=== PATIENT | male | born 1935 | race Two or more races ===

== ENCOUNTER 2018-12-15 14:23 | Inpatient (IN) | payer MEDICARE, BC ==
[2018-12-15] MEDS: SODIUM CHLORIDE 0.9% 1L BAG IV* (14:59)
[2018-12-15 15:07] LABS: ADD MAN DIFF? NO
[2018-12-15 15:10] LABS: BASOPHILS % 0.3 % (0.0-2.0); EOSINOPHILS # 0.1 10^3/ul (0.0-0.5); EOSINOPHILS % 1.1 % (0.0-7.0); HEMATOCRIT 45.7 % (42.0-52.0); HEMOGLOBIN 13.8 g/dl (14.0-18.0); LYMPHOCYTES % 21.3 % (15.0-51.0); MEAN CORPUSCULAR HEMOGLOBIN 26.1 pg (29.0-33.0); MEAN CORPUSCULAR HGB CONC 30.2 g/dl (32.0-37.0); MEAN CORPUSCULAR VOLUME 86.4 fl (82.0-101.0); MEAN PLATELET VOLUME 10.9 fl (7.4-10.4); MONOCYTE # 0.7 10^3/ul (0.3-0.9); MONOCYTES % 7.7 % (0.0-11.0); NEUTROPHIL # 6.4 10^3/ul (1.6-7.5); NEUTROPHILS % 69.1 % (39.0-77.0); PLATELET COUNT 209 10^3/UL (140-415); RED BLOOD COUNT 5.29 10^6/ul (4.70-6.10); RED CELL DISTRIBUTION WIDTH 13.6 % (11.5-14.5)
[2018-12-15 15:10] LABS: WHITE BLOOD COUNT 9.3 10^3/ul (4.8-10.8)
[2018-12-15 15:19] LABS: INR 1.12; PARTIAL THROMBOPLASTIN TIME 29.1 Sec (23.0-35.0); PROTIME 14.5 Sec (11.9-14.9); PT RATIO 1.1
[2018-12-15 15:22] LABS: ALANINE AMINOTRANSFERASE 23 IU/L (13-69); ALBUMIN 3.1 g/dl (3.3-4.9); ALBUMIN/GLOBULIN RATIO 0.96; ALKALINE PHOSPHATASE 80 IU/L (42-121); ANION GAP 7 (5-13); ASPARTATE AMINO TRANSFERASE 23 IU/L (15-46); BILIRUBIN,INDIRECT 0.7 mg/dl (0-1.1); BILIRUBIN,TOTAL 0.7 mg/dl (0.2-1.3); BLOOD UREA NITROGEN 24 mg/dl (7-20); CALCIUM 8.5 mg/dl (8.4-10.2); CARBON DIOXIDE 28 mmol/L (21-31); CHLORIDE 106 mmol/L (97-110); CREATININE 0.63 mg/dl (0.61-1.24); GLUCOSE 101 mg/dl (70-220); LIPASE 112 U/L (23-300); POTASSIUM 3.8 mmol/L (3.5-5.1); SODIUM 141 mmol/L (135-144); TOTAL PROTEIN 6.3 g/dl (6.1-8.1)
[2018-12-15 15:34] LABS: TROPONIN-I 0.014 ng/ml (0.000-0.120)
[2018-12-15 16:16] LABS: ADD UMIC YES; UR ASCORBIC ACID NEGATIVE (NEGATIVE); UR BILIRUBIN (Dip) NEGATIVE (NEGATIVE); UR BLOOD (Dip) 2+ mg/dL (NEGATIVE); UR CLARITY TURBID (CLEAR); UR COLOR AMBER (YELLOW); UR GLUCOSE (Dip) NEGATIVE (NEGATIVE); UR KETONES (Dip) NEGATIVE (NEGATIVE); UR LEUKOCYTE ESTERASE (Dip) 2+ Leu/ul (NEGATIVE); UR NITRITE (Dip) POSITIVE (NEGATIVE); UR RBC 26 /HPF (0-5); UR SPECIFIC GRAVITY (Dip) 1.018 (1.003-1.030); UR TOTAL PROTEIN (Dip) 2+ mg/dl (NEGATIVE); UR UROBILINOGEN (Dip) NEGATIVE (NEGATIVE); UR WBC > 182 /HPF (0-5)
[2018-12-15] MEDS: CEFTRIAXONE 1 GM/50 ML (PMX) 50 ML IVPB (16:46)
[2018-12-15 17:14] LABS: LACTIC ACID 1.4 mmol/L (0.5-2.0)
[2018-12-15] MEDS ORDERED: ONDANSETRON 4 MG INJ IV ×2 (18:30→19:30)
[2018-12-15] MEDS ORDERED: ACETAMINOPHEN 325 MG TAB PO ×2 (18:30→19:30)
[2018-12-15] MEDS ORDERED: DOCUSATE SODIUM 100 MG CAP PO (19:30)
[2018-12-15] MEDS ORDERED: ZOLPIDEM 5 MG TAB PO (19:30)
[2018-12-15] MEDS ORDERED: morphine 2 MG INJ IV (19:30)
[2018-12-15] MEDS ORDERED: HYDROCODONE/APAP (5/325) TAB PO (19:30)
[2018-12-15] MEDS ORDERED: NACL 0.9% 3 ML SYG IV (19:30)
[2018-12-15] MEDS: D5W-0.45 NACL + KCL 20 MEQ 1,000 ML IV (20:29)
[2018-12-15] MEDS ORDERED: PENDING SANTYL ORDER FOR WOUND CARE XX (22:30)
[2018-12-15 22:41] LABS: LACTIC ACID 1.4 mmol/L (0.5-2.0)
[2018-12-16 05:54] LABS: ADD MAN DIFF? NO
[2018-12-16 06:22] LABS: ANION GAP 1 (5-13); BLOOD UREA NITROGEN 16 mg/dl (7-20); CALCIUM 8.3 mg/dl (8.4-10.2); CARBON DIOXIDE 31 mmol/L (21-31); CHLORIDE 108 mmol/L (97-110); CREATININE 0.52 mg/dl (0.61-1.24); GLUCOSE 105 mg/dl (70-220); MAGNESIUM 2.1 mg/dl (1.7-2.5); PHOSPHORUS 3.1 mg/dl (2.5-4.9); SODIUM 140 mmol/L (135-144)
[2018-12-16 06:40] LABS: WHITE BLOOD COUNT 7.6 10^3/ul (4.8-10.8)
[2018-12-16 06:40] LABS: BASOPHILS % 0.5 % (0.0-2.0); EOSINOPHILS # 0.2 10^3/ul (0.0-0.5); HEMATOCRIT 41.4 % (42.0-52.0); HEMOGLOBIN 12.6 g/dl (14.0-18.0); LYMPHOCYTES # 1.5 10^3/ul (0.8-2.9); LYMPHOCYTES % 19.4 % (15.0-51.0); MEAN CORPUSCULAR HEMOGLOBIN 26.4 pg (29.0-33.0); MEAN CORPUSCULAR HGB CONC 30.4 g/dl (32.0-37.0); MEAN CORPUSCULAR VOLUME 86.6 fl (82.0-101.0); MEAN PLATELET VOLUME 10.9 fl (7.4-10.4); MONOCYTE # 0.7 10^3/ul (0.3-0.9); MONOCYTES % 9.1 % (0.0-11.0); NEUTROPHIL # 5.2 10^3/ul (1.6-7.5); NEUTROPHILS % 68.6 % (39.0-77.0); PLATELET COUNT 199 10^3/UL (140-415); RED BLOOD COUNT 4.78 10^6/ul (4.70-6.10); RED CELL DISTRIBUTION WIDTH 13.6 % (11.5-14.5)
[2018-12-16] MEDS: D5W-0.45 NACL + KCL 20 MEQ 1,000 ML IV ×2 (08:50→10:04)
[2018-12-16] MEDS: ENOXAPARIN 40 MG/0.4 ML SYG SC (08:53)
[2018-12-16] MEDS: BALSAM PERU/CASTOR OIL 60 GM TUBE TOP ×2 (12:45→21:26)
[2018-12-16] MEDS: COLLAGENASE 5 GM (UD JAR) TOP (12:45)
[2018-12-16] MEDS: CEFTRIAXONE 1 GM/50 ML (PMX) 50 ML IVPB (15:38)
[2018-12-17] MEDS: D5W-0.45 NACL + KCL 20 MEQ 1,000 ML IV ×2 (00:17→14:37)
[2018-12-17] MEDS: ZINC SULFATE 220 MG CAP PO (09:02)
[2018-12-17] MEDS: MULTIVITAMINS/MINERALS TAB PO (09:02)
[2018-12-17] MEDS: ASCORBIC ACID 500 MG TAB PO (09:02)
[2018-12-17] MEDS: ENOXAPARIN 40 MG/0.4 ML SYG SC (09:03)
[2018-12-17] MEDS: BALSAM PERU/CASTOR OIL 60 GM TUBE TOP ×2 (09:04→21:00)
[2018-12-17] MEDS: COLLAGENASE 5 GM (UD JAR) TOP (14:37)
[2018-12-17] MEDS: CEFTRIAXONE 1 GM/50 ML (PMX) 50 ML IVPB (16:39)
[2018-12-18] MEDS: D5W-0.45 NACL + KCL 20 MEQ 1,000 ML IV (04:44)
[2018-12-18] MEDS: BALSAM PERU/CASTOR OIL 60 GM TUBE TOP (09:39)
[2018-12-18] MEDS: ZINC SULFATE 220 MG CAP PO (09:39)
[2018-12-18] MEDS: MULTIVITAMINS/MINERALS TAB PO (09:39)
[2018-12-18] MEDS: ASCORBIC ACID 500 MG TAB PO (09:39)
[2018-12-18] MEDS: COLLAGENASE 5 GM (UD JAR) TOP (09:39)
[2018-12-18] MEDS: ENOXAPARIN 40 MG/0.4 ML SYG SC (09:44)
[2018-12-18] MEDS: CEFTRIAXONE 1 GM/50 ML (PMX) 50 ML IVPB (16:06)
== END 2018-12-18 18:00 | disposition hospice, home (50) | DRG 689 ==
LOC: E/R 14:23 → 2NE 18:22
DX: N39.0 Urinary tract infection, site not specified (principal); L89.153 Pressure ulcer of sacral region, stage 3; G93.41 Metabolic encephalopathy; R64 Cachexia; Z68.1 Body mass index [BMI] 19.9 or less, adult; L89.220 Pressure ulcer of left hip, unstageable; L89.210 Pressure ulcer of right hip, unstageable; F02.80 Dementia in other diseases classified elsewhere, unspecified severity, without behavioral disturbance, psychotic disturbance, mood disturbance, and anxiety; G30.1 Alzheimer's disease with late onset; Z79.82 Long term (current) use of aspirin; Z87.891 Personal history of nicotine dependence
CPT/HCPCS: 36415; 71045; 80048; 80053; 81001; 83605; 83690; 83735; 84100; 84484; 85025; 85610; 85730; 87040-91; 87045; 87086; 92610; 93005; 96365; 99285-25